=== PATIENT | male | born 1975 | race Caucasian/White ===

== ENCOUNTER 2019-10-08 19:05 | Emergency (ER) | payer MEDICARE, MEDICAID, SELFPAY ==
[2019-10-08 20:00] VITALS: BP 110/73; PULSE 76; RESP 16; TEMP 36.7; O2SAT 97; BMI 26.5
== END 2019-10-09 00:51 | disposition left against medical advice (07) ==
PROVIDERS: Emergency Provider Emergency Medicine
DX: Z53.21 Procedure and treatment not carried out due to patient leaving prior to being seen by health care provider (principal)
CPT/HCPCS: 99281

== ENCOUNTER 2019-10-09 12:59 | Emergency (ER) | payer MEDICARE, MEDICAID, SELFPAY ==
[2019-10-09 13:06] VITALS: BP 149/83; PULSE 93; RESP 17; TEMP 36.9; O2SAT 96; BMI 26.5
--- NOTE | 2019-10-09 13:23 | PC.NURSE ---
Patient states that he has blood in urine and in semen, patient states that he has had multiple sexual partners.
--- NOTE | 2019-10-09 13:24 | ED_ITS ---
Entered by Diana Petit, acting as scribe for Jaspreet Perez DO HPI - Male Genitourinary General: Chief complaint: Urogenital-Male Stated complaint: bloody urine PFSH ED PFSH: Statuses (acute, chronic, etc) shown below reflect problem list status as previously entered and may not be historically accurate Social History Smoking and tobacco status: former smoker Course Vital Signs: Vital signs: Vital Signs Temperature 98.5 F 10/09/19 13:06 Pulse Rate 93 10/09/19 13:06 Respiratory Rate 17 10/09/19 13:06 Blood Pressure 149/83 10/09/19 13:06 Pulse Oximetry 96 10/09/19 13:06 Discharge Plan Discharge Prescriptions: No Action Klonopin PO RF: 0 Lexapro PO RF: 0 Singulair PO RF: 0 Wellbutrin SR PO RF: 0 gabapentin PO RF: 0 meloxicam PO RF: 0 Coding Level of Care Code ED P D 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
--- NOTE | 2019-10-09 13:48 | W.ED.MALEGU ---
HPI - Male Genitourinary General: Chief complaint: Urogenital-Male Stated complaint: bloody urine Time Seen by Provider: 10/09/19 13:48 Source: patient and other (Significant other) Mode of arrival: ambulatory Limitations: no limitations History of Present Illness: HPI Narrative: Patient is a 43-year-old male who presents to ED today with a complaint of blood in his ejaculate that he noticed 2 days ago; also stated this morning when he urinated he noticed a little bit of blood in his urine; significant other in the room states that they both each have one other sexual partner whom they are active with; patient denies penile discharge, dysuria, rashes/lesions, or concern for STDs; he denies testicular pain/warmth/swelling; denies injury or trauma MD Complaint: other (Blood in ejaculate) Onset (ago): day(s) Duration: improved Exacerbating factors: none Associated symptoms: Reports no associated symptoms and hematuria; Deny dysuria, nausea, urinary incontinence or vomiting Related Data: Sexually active: Yes Review of Systems GI: Denies: abdominal pain, nausea or vomiting : Reports: blood in urine and blood in semen; Denies: flank pain, difficulty urinating, painful urination, urinary frequency, urinary urgency, urinary hesitancy, urinary dribbling, difficulty starting urination, change in urine stream, urinary incontinence, genital pain, genital lesion, penile discharge, testicular pain, testicular mass, scrotal swelling, difficulty with ejactulations, painful ejaculations or erectile dysfunction PFSH ED PFSH: Statuses (acute, chronic, etc) shown below reflect problem list status as previously entered and may not be historically accurate Social History Smoking and tobacco status: former smoker Physical Exam Const: COMMON NORMALS: no apparent distress, average body habitus, oriented x3, alert and well nourished GI: COMMON NORMALS: normal to inspection, nondistended, normoactive bowel sounds, soft to palpation and non-tender PALPATION: Yes soft : COMMON NORMALS: Yes external exam normal PENIS: normal penis MEATUS: meatus normal SCROTUM: Yes testes descended bilaterally TESTES: Yes testicular lie normal Neuro: COMMON NORMALS: oriented x3 SENSORIUM/ORIENTATION: Yes alert Skin: COMMON NORMALS: no rashes or lesions noted GENERAL SKIN EXAM: no rashes or lesions noted Course Vital Signs: Vital signs: Vital Signs Temperature 98.5 F 10/09/19 13:06 Pulse Rate 93 10/09/19 13:06 Respiratory Rate 17 10/09/19 13:06 Blood Pressure 149/83 10/09/19 13:06 Pulse Oximetry 96 10/09/19 13:06 MDM - Male Lab Data: Labs: Lab Results 10/09/19 Range/Units 13:36 Urine Color Straw (Yellow) Urine Appearance Clear (CLEAR) Urine pH 6.0 (5-7) Ur Specific Gravit y 1.005 (1.005-1.030) Urine Protein Neg (Negative) Urine Glucose (UA) Norm (Normal) Urine Ketones Negative (Negative) Urine Occult Blood Neg (Negative) Urine Nitrate Negative (Negative) Urine Bilirubin Neg (NEGATIVE) Urine Urobilinogen Norm (Negative) mg/dL Ur Leukocyte Elise ase Negative (Negative) Discharge Plan Discharge Patient Disposition: Home, Self-Care Clinical Impression: Hematospermia Condition: Stable Prescriptions: No Action gabapentin 600 mg Tablet 600 mg PO BID RF: 0 clonazepam 1 mg Tablet 1 mg PO DAILY RF: 0 meloxicam 7.5 mg Tablet 7.5 mg PO BID RF: 0 montelukast 10 mg Tablet 10 mg PO DAILY RF: 0 escitalopram oxalate [Lexapro] 20 mg Tablet 20 mg PO DAILY RF: 0 bupropion HCl [Wellbutrin XL] 300 mg Tablet Extended Release 24 Hr 300 mg PO QAM RF: 0 Discharge Orders: Discharge Order (Routine); Ordered 10/09/19 Ordered By: Danielle Ponce Referrals: [facility] [Other] Discharge Diet: Usual diet Discharge Activity: Resume usual activity Activity Restrictions/Additional Instructions: Follow up with primary care for continued episodes of blood in your ejaculate. If you develop STD symptoms (i.e penile discharge, rash/lesions, burning/painful urination) you need to go to [facility] for [facility]D testing. 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
[2019-10-09 13:52] LABS: Add Urine Microscopic? NO
[2019-10-09 14:17] LABS: Bilirubin Urine Neg (NEGATIVE); Blood Urine Neg (Negative); Glucose Urine UA Norm (Normal); Ketones Urine Negative (Negative); Leukocyte Esterase Urine Negative (Negative); Nitrate Urine Negative (Negative); Protein Urine Neg (Negative); Specific Gravity, Urine 1.005 (1.005-1.030); Urine Appearance Clear (CLEAR); Urine Color Straw (Yellow); Urobilinogen Urine Norm (Negative)
[2019-10-09 14:47] VITALS: BP 119/71; PULSE 91; RESP 18; O2SAT 95
== END 2019-10-09 14:49 | disposition home or self-care (01) ==
PROVIDERS: Family Medicine; Emergency Provider Physician Assistant
DX: R36.1 Hematospermia (principal); Z87.891 Personal history of nicotine dependence
CPT/HCPCS: 81003; 99282; A9270

== ENCOUNTER → 2019-10-20 14:55 | Outpatient (BNVA) | payer MEDICARE, MEDICAID, SELFPAY | PROVIDERS: Visit Provider Nurse Practitioner | DX: F33.2 Major depressive disorder, recurrent severe without psychotic features (principal); F41.1 Generalized anxiety disorder; R41.83 Borderline intellectual functioning | CPT/HCPCS: 99213 ==

== ENCOUNTER 2019-12-26 20:35 | Emergency (ER) | payer MEDICARE, MEDICAID, SELFPAY ==
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
[2019-12-26 20:42] VITALS: BP 148/96; PULSE 108; RESP 20; TEMP 36.3; O2SAT 96; BMI 25.1
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
[2019-12-26 22:07] VITALS: BP 137/92; PULSE 100; RESP 16; O2SAT 96
== END 2019-12-26 22:08 | disposition home or self-care (01) ==
LOC: ER 21:38
PROVIDERS: Emergency Provider Emergency Medicine
DX: S01.511A Laceration without foreign body of lip, initial encounter (principal); Y04.8XXA Assault by other bodily force, initial encounter; R41.83 Borderline intellectual functioning; F41.1 Generalized anxiety disorder; F33.2 Major depressive disorder, recurrent severe without psychotic features
CPT/HCPCS: 12011; 12345; 70450; 70486; 99281; 99283; J2001

== ENCOUNTER → 2020-02-10 08:14 | Outpatient (BNVA) | payer MEDICARE, MEDICAID, SELFPAY | PROVIDERS: Visit Provider Nurse Practitioner | DX: F41.1 Generalized anxiety disorder (principal); F33.2 Major depressive disorder, recurrent severe without psychotic features; R41.83 Borderline intellectual functioning | CPT/HCPCS: 99213 ==

== ENCOUNTER 2020-06-29 10:42 | Emergency (ER) | payer MEDICARE, MEDICAID, SELFPAY ==
[2020-06-29 11:27] VITALS: BP 130/74; PULSE 117; RESP 16; TEMP 36.9; O2SAT 95; BMI 22.9
--- NOTE | 2020-06-29 12:43 | W.ED.FEVER ---
HPI - Fever General: Chief Complaint: Fever Stated Complaint: COVID SYMPTOMS Time Seen by Provider: 06/29/20 12:27 History of Present Illness: HPI Narrative: 44-year-old male presents to the emergency room with a complaint of low-grade fever cough sinus congestion ear pain. He was seen yesterday by his primary care doctor, he presumed he had an ear infection but there was no antibiotics called and he is concerned that his ears are bothering him more and his symptoms are advancing. He has had a little bit of loose stools but no patric diarrhea is not been exposed to anyone that he knows of that has COVID. MD elicited complaint: fever Onset (ago): day(s) Exacerbating factors: nothing Relieving factors: nothing Associated symptoms: Reports chills, cough, diarrhea, nasal congestion and nausea; Deny abdominal pain, flank pain, chest pain, confusion, dysuria, extremity pain, headache(s), myalgias, night sweats, rash, rhinorrhea, short of breath, sinus pain, stiffness, sore throat, vaginal discharge, vomiting, weight loss or other Treatments prior to arrival fever: none Review of Systems Const: Reports: chills; Denies: night sweats ENMT: Reports: nasal congestion; Denies: sinus pain Card: Denies: chest pain Resp: Denies: dyspnea, productive cough or non-productive cough GI: Reports: nausea and diarrhea; Denies: abdominal pain or vomiting : Denies: flank pain or dysuria Musc: Denies: extremity pain Skin/Breast: Denies: rash or pruritus Neuro: Denies: headache(s) or confusion PFS ED PFSH: Medical History Borderline intellectual functioning Generalized anxiety disorder Major depressive disorder, recurrent severe without psychotic features Social History Smoking and tobacco status: never smoked Physical Exam Const: COMMON NORMALS: no acute distress GENERAL APPEARANCE: cooperative and comfortable ORIENTATION/CONSCIOUSNESS: Yes awake, Yes oriented to person, Yes oriented to place and Yes oriented to time HENMT: COMMON NORMALS: normocephalic, atraumatic, hearing grossly normal bilaterally, external ears normal, EAC's normal, TM's normal bilaterally, Normal nasal mucous membranes and turbinates present, moist oral mucous membranes and oropharynx normal HEAD & SCALP: normocephalic and atraumatic NOSE: Normal nasal mucous membranes and turbinates present EXTERNAL EAR: Yes external ears normal EXTERNAL AUDITORY CANAL: EAC's normal TYMPANIC MEMBRANE: TM's normal bilaterally Eye: COMMON NORMALS: Equal, round and reactive pupils present, EOMs intact bilaterally, conjunctivae normal and no scleral icterus CONJUNCTIVA: Yes conjunctivae normal PUPIL: Yes Equal, round and reactive pupils present Neck/C-Spine: COMMON NORMALS: full ROM, no lymphadenopathy, supple and no JVD Lymph: LYMPHATIC: no lymphadenopathy noted and no lymphedema noted Resp: COMMON NORMALS: normal respiratory effort, No retractions, No use of accessory muscles and clear to auscultation bilaterally AUSCULTATION: clear to auscultation bilaterally Cardio: COMMON NORMALS: no JVD, regular rate, regular rhythm and No murmurs present (Cardio) RATE: regular rate RHYTHM: regular rhythm GI: COMMON NORMALS: Soft to palpation and No hepatosplenomegaly present AUSCULTATION: Yes normoactive bowel sounds PALPATION: Yes Soft to palpation, No Tenderness to palpation present (GI), No Guarding due to palpation present (GI) and Yes No hepatosplenomegaly present Extremity: COMMON NORMALS: normal to inspection, capillary refill normal, no clubbing, cyanosis or edema, no calf tenderness and no pedal edema Neuro: SENSORIUM/ORIENTATION: Yes oriented to person, Yes oriented to place and Yes oriented to time Skin: COMMON NORMALS: no rashes or lesions noted GENERAL SKIN EXAM: no rashes or lesions noted Course Vital Signs: Vital signs: Vital Signs Temperature 98.5 F 06/29/20 11:27 Pulse Rate 102 H 06/29/20 12:50 Respiratory Rate 14 06/29/20 12:50 Blood Pressure 115/81 06/29/20 12:50 Pulse Oximetry 95 06/29/20 12:50 MDM - Fever MDM Narrative: Medical decision making narrative: TMs bilaterally are clear with no sign of infection or inflammation. We will go ahead and discharge home suspect he also has a COVID-19 infection was swabbed advised to remain in quarantine until results are available. Lab Data: Labs: Lab Results 06/29/20 Range/Units 12:55 SARS-CoV-2 RNA (RT -PCR) Detected A (NOT DETECTED) Discharge Plan Discharge Patient Disposition: Home Clinical Impression: Otalgia, Suspected COVID-19 virus infection Condition: Stable Prescriptions: No Action escitalopram oxalate [Lexapro] 20 mg tablet 20 mg PO DAILY Qty: 30 RF: 2 bupropion HCl [Wellbutrin XL] 300 mg tablet extended release 24 hr 300 mg PO QAM Qty: 30 RF: 2 clonazepam 1 mg tablet 1 mg PO DAILY PRN (Reason: anxiety) Qty: 30 RF: 2 Tylenol Extra Strength 500 mg Tablet 1,000 mg PO PRN RF: 0 Flonase Allergy Relief 50 mcg/actuation [place],Suspension 1 spray INTRANASAL DAILY RF: 0 Claritin 10 mg Tablet 10 mg PO BID RF: 0 gabapentin 600 mg Tablet 600 mg PO BID RF: 0 meloxicam 7.5 mg Tablet 7.5 mg PO DAILY RF: 0 Discharge Orders: Discharge Order (Routine); Ordered 06/29/20 Ordered By: Jaspreet Perez Discharge Diet: Usual diet Discharge Activity: Increase activity as tolerated Activity Restrictions/Additional Instructions: Use medication as prescribed by the your doctor yesterday. Recommend that you maintain self quarantine until the COVID-19 swab results are back. If you have worsening symptoms you can return to the emergency room particularly be wary of increasing shortness of breath. Discharge Date/Time: 06/29/20 12:55 Coding Level of Care Code ED [employer] for 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 Exam Comprehensive
[2020-06-29 12:44] VITALS: BP 115/81; PULSE 103; RESP 15; O2SAT 97
[2020-06-29 12:50] VITALS: BP 115/81; PULSE 102; RESP 14; O2SAT 95
[2020-07-01 20:17] LABS: Quest SARS-CoV-2 RNA DETECTED (NOT DETECTED)
--- NOTE | 2020-07-02 11:06 | PC.NURSE ---
Pt called and notified of positive COVID result.
== END 2020-06-29 12:55 | disposition home or self-care (01) ==
PROVIDERS: Emergency Provider Family Medicine
DX: U07.1 COVID-19 (principal); H92.09 Otalgia, unspecified ear
CPT/HCPCS: 12345; 87635; 99282

== ENCOUNTER → 2020-07-22 08:05 | Outpatient (BNVA) | payer MEDICARE, MEDICAID, SELFPAY | PROVIDERS: Visit Provider Nurse Practitioner | DX: F33.2 Major depressive disorder, recurrent severe without psychotic features (principal); F41.1 Generalized anxiety disorder; R41.83 Borderline intellectual functioning | CPT/HCPCS: 99213 ==

== ENCOUNTER → 2022-05-04 10:27 | Outpatient (BNVA) | payer MEDICARE, MEDICAID, SELFPAY | PROVIDERS: PCP Family Medicine; Visit Provider Surgery | DX: Z12.11 Encounter for screening for malignant neoplasm of colon (principal) | CPT/HCPCS: 99024 ==

== ENCOUNTER 2022-08-03 07:20 | Day surgery (SDC) | payer MEDICARE, MEDICAID, SELFPAY ==
[2022-08-02 09:40] VITALS: BMI 26.5
[2022-08-03 07:52] VITALS: BP 122/85; PULSE 86; RESP 18; TEMP 36.1; O2SAT 96
[2022-08-03] MEDS: sodium chloride 0.9% 1,000 ML 30 ML IV (08:05)
--- NOTE | 2022-08-03 08:06 | P.HP_ITS ---
Same Day Surgery H&P Indication for Procedure/HPI DATE OF PROCEDURE: August 03, 2022 CHIEF COMPLAINT/INDICATIONFOR SURGICAL PROCEDURE: Screening colonoscopy PREOP DIAGNOSIS: Screening colonoscopy PLANNED PROCEDURE: Operation Date: 08/03/22 09:00 Proposed Procedures p Colonoscopy 93756,Z12.11(Not Applicable) - Marcos Kelly MD This is a pleasant 46 years old gentleman referred to my practice for screening colonoscopy. Patient reports that he had blood in stool on a testing card. Per his description. Denies history of colon cancer or obvious bleeding per rectum. Never had a colonoscopy before. ROS All systems have been reviewed negative except as for the above or per problem list. Medications/Allergies* Home Medications Medication Instructions Recorded Confirmed Type acetaminophen 500 mg tablet 1,000 mg PO PRN PRN Pain 06/29/20 08/02/22 History (Tylenol Extra Strength) fluticasone propionate 50 1 spray intranasal DAILY PRN 06/29/20 08/02/22 History mcg/actuation nasal allergies spray,suspension (Flonase Allergy Relief) diphenhydramine HCl 25 mg capsule 25 mg PO TID PRN Allergic Symptoms 08/03/22 08/03/22 History (Benadryl) Allergies/Adverse Reactions Allergy/AdvReac Type Severity Reaction Status Date / Time aspirin Allergy Unknown Verified 08/03/22 08:07 Current Medications: Generic Name Dose Route Start Last Admin Trade Name Freq PRN Reason Stop Dose Admin Sodium Chloride 1,000 mls @ 30 mls/hr 08/03/22 08:00 08/03/22 08:05 Sodium Chloride 0.9% IV 08/04/22 07:59 30 mls/hr .Q24H LEONID Administration Pertinent History/Comorbid Conditions* Medical History (Updated 07/07/20 @ 00:01 by ) Borderline intellectual functioning Generalized anxiety disorder Major depressive disorder, recurrent severe without psychotic features Social History Smoking and tobacco status: never smoked Pertinent Exam Findings alert, oriented x 3, clear to auscultation bilaterally, regular rate & rhythm and procedure specific exam findings (Abdominal exam nontender nondistended soft) Recommendations Surgery/Procedure today (Colonoscopy with possible biopsy) Other Plans: Plan of care; After thorough history and physical examination and reviewing the chart, plan to perform screening colonoscopy. I discussed with the patient in details the risks,benefits,alternatives and indications.The risk of aspiration, bleeding, soft tissue injury, perforation of the colon ,missed lesions and other potential concomitant complications were explained to the patient in details,also the potential need for Laproscoy/Laparotomy to repair any related complications including but not limited to colectomy and or Closotomy.The patient understood this well and did agree to proceed. Rationale was carefully and clearly discussed with the patient.Appropriate informed consent have been reviewed and signed All questions have been answered and all concerns have been addressed to patient's satisfaction. Verbal and written Instructions were given to the patient for colonoscopy prep Coding Level of Care Code Acute Application Support Intern for 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
--- NOTE | 2022-08-03 08:21 | ANES.PREANE2 ---
Pre-Anesthetic Assessment Height/Weight: Height 1.78 m Weight 83.915 kg Temp Pulse Resp BP Pulse Ox O2 Del Method 97.0 F L 86 18 122/85 96 08/03/22 07:52 08/03/22 07:52 08/03/22 07:52 08/03/22 07:52 08/03/22 07:52 08/03/22 07:52 Preop Diagnosis: Screening colonoscopy Operation Date: 08/03/22 09:00 Proposed Procedures p Colonoscopy 79159,Z12.11(Not Applicable) - Marcos Kelly MD Familial anesthetic complications: None Was Beta Guillermo taken within 24 hours: N/A Was Clonidine taken within 24 hours: N/A Last intake: Intake Last Liquid Date 08/02/22 Last Liquid Time 22:00 Last Solid Date 08/01/22 Last Solid Time 17:00 Social No alcohol and No tobacco Exam alert, oriented x 3, clear to auscultation bilaterally and regular rate & rhythm Airway Submandibular: within normal limits Cervical ROM: within normal limits Mallampati: Class III Dentition: chipped History/ROS No significant history except as noted and No significant complaints Pulmonary None reported CV/HEM Hypertension None reported Hepatic None reported GI Gastroesophageal Reflux Disease (None this AM) Metabolic None reported Musc/skel Lower Back Pain and Osteoarthritis/DJD Neuropsych Anxiety and Depression Anesthetic Plan ASA status: 2 Anesthesia: Anesthesia Evaluation, General and MAC Risk of > 500 ml blood loss (7ml/kg in children): No Medications/Allergies Home Medications Medication Instructions Recorded Confirmed Last Taken Type acetaminophen 500 mg tablet 1,000 mg PO PRN PRN Pain 06/29/20 08/03/22 06/28/20 History (Tylenol Extra Strength) fluticasone propionate 50 1 spray intranasal DAILY PRN 06/29/20 08/03/22 Unknown History mcg/actuation nasal allergies spray,suspension (Flonase Allergy Relief) diphenhydramine HCl 25 mg capsule 25 mg PO TID PRN Allergic Symptoms 08/03/22 08/03/22 07/31/22 History (Benadryl) Allergies Allergy/AdvReac Type Severity Reaction Status Date / Time aspirin Allergy Unknown Verified 08/03/22 08:07 Current Medications Generic Name Dose Route Start Last Admin Trade Name Freq PRN Reason Stop Dose Admin Sodium Chloride 1,000 mls @ 30 mls/hr 08/03/22 08:00 08/03/22 08:05 Sodium Chloride 0.9% IV 08/04/22 07:59 30 mls/hr .Q24H LEONID Administration PFSH Anesthesia Medical History (Updated 07/07/20 @ 00:01 by ) Borderline intellectual functioning Generalized anxiety disorder Major depressive disorder, recurrent severe without psychotic features Social History Smoking and tobacco status: never smoked Data Anesthesia Cardiac Studies: No Data to Display
[2022-08-03 09:32] VITALS: BP 108/74; PULSE 87; RESP 20; TEMP 36.4; O2SAT 96
[2022-08-03 09:40] VITALS: BP 103/73; PULSE 77; RESP 18; O2SAT 97
--- NOTE | 2022-08-03 15:20 | ANE.PACU2 ---
Inpatient post-anesthesia follow up: Airway intact: Yes Vital signs: Temperature 97.6 F Pulse Rate 77 Respiratory Rate 18 Blood Pressure 103/73 Pulse Oximetry 97 Oxygen Delivery Me thod Room Air Oxygen Flow Rate 4 Fraction of Inspir ed Oxygen Hydration adequate: Yes Nausea and vomiting: No Pain level: 1 Mental status: Baseline
== END 2022-08-03 10:04 | disposition home or self-care (01) ==
PROVIDERS: PCP Family Medicine; Visit Provider Surgery
PROC: 0DJD8ZZ Inspection of Lower Intestinal Tract, Via Natural or Artificial Opening Endoscopic (ICD-10-PCS; CPT 45378; principal; 2022-08-03 09:00)
DX: Z12.11 Encounter for screening for malignant neoplasm of colon (principal); I10 Essential (primary) hypertension; K21.9 Gastro-esophageal reflux disease without esophagitis; F41.9 Anxiety disorder, unspecified; F32.A Depression, unspecified
CPT/HCPCS: 45378; G0121; J2704; J7030

== ENCOUNTER 2023-10-13 16:13 | Emergency (ER) | payer MEDICARE, MEDICAID, SELFPAY ==
[2023-10-13 16:21] VITALS: BP 121/80; PULSE 98; RESP 16; TEMP 36.5; O2SAT 96
--- NOTE | 2023-10-13 16:37 | ECG_ITS ---
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 Measurements Intervals [place] Rate: 90 P: 52 MS: 190 QRS: 11 QRSD: 92 T: 40 QT: 343 QTc: 421 Interpretive Statements SINUS RHYTHM INTERPRETATION BASED ON A DEFAULT AGE OF 40 YEARS Compared to ECG 09/02/2018 12:01:34 No significant changes Electronically Signed On 10-14-2023 8:30:01 [employer] by Deniz Tavares M.D. [id number] f
--- NOTE | 2023-10-13 16:42 | XRR_ITS ---
PROCEDURE INFORMATION: Exam: XR Chest Exam date and time: 10/13/2023 5:21 PM Age: 47 years old Clinical indication: Cough and dyspnea; Additional info: Dyspnea/cough TECHNIQUE: Imaging protocol: Radiologic exam of the chest. Views: 1 view. COMPARISON: CR XR chest 1V [id number] 09/02/2018 11:50 AM FINDINGS: Lungs: Unremarkable. No consolidation. Pleural spaces: Unremarkable. No pleural effusion. No pneumothorax. Heart/Mediastinum: Unremarkable. No cardiomegaly. Bones/joints: Unremarkable. XR/XR chest 1V portable [id number] IMPRESSION: No acute findings.
--- NOTE | 2023-10-13 16:47 | ED_ITS ---
Documented by User: Jaspreet Perez DO 10/14/23 07:39 HPI - Nausea/Vomiting/Diarrhea 2 General: Chief complaint: Nausea/Vomiting/Diarrhea Stated complaint: Chest pains/ weakness/ nauseous Time Seen by Provider: 10/13/23 16:41 Source: patient Mode of arrival: ambulatory History of Present Illness: 47-year-old male presents emergency room with complaints of epigastric and chest discomfort that began about 2 hours prior to arrival. He was working on repairing a deer stand he had a cramping pain in his stomach extended into his chest lasted for a few seconds and then resolved he has not had any recurrence. No radiation of pain no shortness of breath associated with it he did get nauseated transiently but that resolved as well. He has not had any previous episodes like this or recurrence since this initially happened. He has no known history of coronary artery disease no history of chronic respiratory disease.. MD elicited complaint: nausea, vomiting and other (Chest pain) Associated nausea: Yes Associated symtoms: Reports chest pain and nausea; Denies dysuria Review of Systems 2 Const: Denies: fever(s) or chills Card: Reports: chest pain Resp: Denies: dyspnea GI: Reports: abdominal pain, nausea and vomiting : Denies: dysuria, urinary frequency or urinary urgency Musc: Denies: neck pain or back pain Skin/Breast: Denies: rash PFSH ED 2 PFSH: Medical History (Updated 10/13/23 @ 18:24 by Sergio Villalba MD) Borderline intellectual functioning Generalized anxiety disorder Major depressive disorder, recurrent severe without psychotic features Social History Smoking and tobacco/nicotine status: never used tobacco/nicotine Physical Exam 2 Const: COMMON NORMALS: no acute distress GENERAL APPEARANCE: cooperative and comfortable ORIENTATION/CONSCIOUSNESS: Yes awake, Yes oriented to person, Yes oriented to place and Yes oriented to time HENMT: COMMON NORMALS: normocephalic, atraumatic and hearing grossly normal bilaterally HEAD & SCALP: normocephalic and atraumatic Resp: COMMON NORMALS: normal respiratory effort, No retractions, No use of accessory muscles and clear to auscultation bilaterally AUSCULTATION: clear to auscultation bilaterally Cardio: COMMON NORMALS: regular rate, regular rhythm and No murmurs present (Cardio) RATE: regular rate RHYTHM: regular rhythm GI: COMMON NORMALS: Soft to palpation and No hepatosplenomegaly present A USCULTATION: Yes normoactive bowel sounds PALPATION: Yes Soft to palpation, No Tenderness to palpation present (GI), No Guarding due to palpation present (GI) and Yes No hepatosplenomegaly present Extremity: COMMON NORMALS: normal to inspection, capillary refill normal, no clubbing, cyanosis or edema, no calf tenderness and no pedal edema Neuro: SENSORIUM/ORIENTATION: Yes oriented to person, Yes oriented to place and Yes oriented to time Skin: COMMON NORMALS: no rashes or lesions noted GENERAL SKIN EXAM: no rashes or lesions noted Course 2 Vital Signs: Vital signs: Vital Signs Temperature 97.7 F 10/13/23 18:57 Pulse Rate 98 10/13/23 18:57 Respiratory Rate 16 10/13/23 18:57 Blood Pressure 121/80 10/13/23 18:57 Pulse Oximetry 96 10/13/23 18:57 Oxygen Delivery Me thod Room Air 10/13/23 16:21 MDM - Nausea/Vomiting/Diarrhea Medical Decision Making Care signed out to Dr. Villalba at change of shift. See final notes for diagnosis and disposition. Patient presents for chest pains atypical in nature likely esophageal spasms patient stable for discharge follow-up PCP return if worsening. Lab Data 10/13/23 17:30 10/13/23 17:30 Radiology Impressions Chest X-Ray 10/13/23 16:42 IMPRESSION: No acute findings. Laboratory Results WBC 8.87 10^3/uL (3.29-11.43) 10/13/23 17:30 RBC 5.12 10^6/uL (3.85-5.65) 10/13/23 17:30 Hgb 14.90 g/dL (11.27-16.99) 10/13/23 17:30 Hct 44.0 % (37-53) 10/13/23 17:30 MCV 85.9 fl (82-101) 10/13/23 17:30 MCH 29.1 pg (27-33) 10/13/23 17:30 MCHC 33.9 g/dL (30-55) 10/13/23 17:30 RDW 12.3 % (12.1-15.1) 10/13/23 17:30 Plt Count 282 10^3/cmm (157-399) 10/13/23 17:30 MPV 9.0 fL (7.4-10.4) 10/13/23 17:30 Neut % (Auto) 72.0 % 10/13/23 17:30 Lymph % (Auto) 17.2 % 10/13/23 17:30 Rice % (Auto) 6.5 % 10/13/23 17:30 Eos % (Auto) 3.7 % 10/13/23 17:30 Baso % (Auto) 0.3 % 10/13/23 17:30 Neut # (Auto) 6.37 10^3/uL (1.8-7.7) 10/13/23 17:30 Lymph # (Auto) 1.5 10^3/uL (0.8-4.8) 10/13/23 17:30 Rice # (Auto) 0.6 10^3/uL (0.2-0.9) 10/13/23 17:30 Eos # (Auto) 0.3 10^3/uL (0.0-0.8) 10/13/23 17:30 Baso # (Auto) 0.0 10^3/uL (0.0-0.1) 10/13/23 17:30 Nucleated RBC % (auto) 0 % 10/13/23 17: Nucleated RBCs # 0.0 /100WBC 10/13/23 17:30 Sodium 134 mmol/L (136-145) L 10/13/23 17:30 Potassium 4.1 mmol/L (3.5-5.1) 10/13/23 17:30 Chloride 98 mmol/L (98-107) 10/13/23 17:30 Carbon Dioxide 25 mmol/L (22-29) 10/13/23 17:30 Anion Gap 15.1 (5-19) 10/13/23 17:30 BUN 16 mg/dL (6-20) 10/13/23 17:30 Creatinine 1.3 mg/dL (0.7-1.2) H 10/13/23 17:30 GFR Calculation 59.2 mL/min (90-130) L 10/13/23 17:30 Glucose 107 mg/dL (65-115) 10/13/23 17:30 POC Glucose 138 mg/dL (70-110) H 10/13/23 17:04 Calculated Osmolality 280 mOsm/kg (285-295) L 10/13/23 17:30 Calcium 8.9 mg/dL (8.5-10.5) 10/13/23 17:30 Total Bilirubin 0.3 mg/dL (0.15-1.2) 10/13/23 17:30 AST 23 U/L (0-40) 10/13/23 17:30 ALT 38 U/L (0-41) 10/13/23 17:30 Alkaline Phosphatase 89 U/L (40-130) 10/13/23 17:30 Troponin T Baseline 7 ng/L (0-15) 10/13/23 17:30 Total Protein 7.4 g/dL (6.6-8.7) 10/13/23 17:30 Albumin 4.3 g/dL (3.5-5.2) 10/13/23 17:30 Globulin 3.1 g/dL (1.3-4.6) 10/13/23 17:30 Lipase 25 U/L (13-60) 10/13/23 17:30 Discharge Plan Discharge Patient Disposition: Home Clinical Impression: Chest pain Condition: Stable Prescriptions: No Action acetaminophen [Tylenol Extra Strength] 500 mg Tablet 1,000 mg PO PRN PRN (Reason: Pain) fluticasone propionate [Flonase Allergy Relief] 50 mcg/actuation [place],Suspension 1 spray INTRANASAL DAILY PRN (Reason: allergies) Rx Instructions: pt states he hasnt started using this medication yet Benadryl 25 mg Capsule 25 mg PO TID PRN (Reason: Allergic Symptoms) Discharge Orders: Discharge ED (Routine); Ordered 10/13/23 Ordered By: Sergio Villalba Referrals: Aldo Rodríguez MD [Primary Care Provider] - 1-3 days Discharge Diet: Advance as tolerated Discharge Activity: Resume usual activity Patient Instructions: Chest Pain (ED) Coding Level of Care Code ED Director Of Direct Marketing for Chg Fwd Documented by User: Sergio Villalba MD 10/13/23 18:29 HPI - Nausea/Vomiting/Diarrhea 2 General: Chief complaint: Nausea/Vomiting/Diarrhea Stated complaint: Chest pains/ weakness/ nauseous Time Seen by Provider: 10/13/23 16:41 History of Present Illness: 47-year-old male states that he had had a sharp epigastric and chest pain roughly 2 hours ago. He states that it lasted seconds and had some nausea with it and then its since resolved he had no pain since then denies any history of heart disease does have history of reflux denies any shortness of breath or fevers. PFSH ED 2 PFSH: Medical History (Updated 10/13/23 @ 18:24 by Sergio Villalba MD) Borderline intellectual functioning Generalized anxiety disorder Major depressive disorder, recurrent severe without psychotic features Social History Smoking and tobacco/nicotine status: never used tobacco/nicotine Course 2 Vital Signs: Vital signs: Vital Signs Temperature 97.7 F 10/13/23 18:57 Pulse Rate 98 10/13/23 18:57 Respiratory Rate 16 10/13/23 18:57 Blood Pressure 121/80 10/13/23 18:57 Pulse Oximetry 96 10/13/23 18:57 Oxygen Delivery Me thod Room Air 10/13/23 16:21 MDM - Nausea/Vomiting/Diarrhea Medical Decision Making Patient presents for chest pains atypical in nature likely esophageal spasms patient stable for discharge follow-up PCP return if worsening. Medical Records I reviewed the patient's medical records. Lab Data I reviewed the patient's lab results. 10/13/23 17:30 10/13/23 17:30 Radiology Impressions Chest X-Ray 10/13/23 16:42 IMPRESSION: No acute findings. Laboratory Results WBC 8.87 10^3/uL (3.29-11.43) 10/13/23 17:30 RBC 5.12 10^6/uL (3.85-5.65) 10/13/23 17:30 Hgb 14.90 g/dL (11.27-16.99) 10/13/23 17:30 Hct 44.0 % (37-53) 10/13/23 17:30 MCV 85.9 fl (82-101) 10/13/23 17:30 MCH 29.1 pg (27-33) 10/13/23 17: MCHC 33.9 g/dL (30-55) 10/13/23 17:30 RDW 12.3 % (12.1-15.1) 10/13/23 17:30 Plt Count 282 10^3/cmm (157-399) 10/13/23 17:30 MPV 9.0 fL (7.4-10.4) 10/13/23 17:30 Neut % (Auto) 72.0 % 10/13/23 17:30 Lymph % (Auto) 17.2 % 10/13/23 17:30 Rice % (Auto) 6.5 % 10/13/23 17:30 Eos % (Auto) 3.7 % 10/13/23 17:30 Baso % (Auto) 0.3 % 10/13/23 17: Neut # (Auto) 6.37 10^3/uL (1.8-7.7) 10/13/23 17:30 Lymph # (Auto) 1.5 10^3/uL (0.8-4.8) 10/13/23 17:30 Rice # (Auto) 0.6 10^3/uL (0.2-0.9) 10/13/23 17:30 Eos # (Auto) 0.3 10^3/uL (0.0-0.8) 10/13/23 17: Baso # (Auto) 0.0 10^3/uL (0.0-0.1) 10/13/23 17:30 Nucleated RBC % (auto) 0 % 10/13/23 17: Nucleated RBCs # 0.0 /100WBC 10/13/23 17:30 Sodium 134 mmol/L (136-145) L 10/13/23 17:30 Potassium 4.1 mmol/L (3.5-5.1) 10/13/23 17:30 Chloride 98 mmol/L (98-107) 10/13/23 17:30 Carbon Dioxide 25 mmol/L (22-29) 10/13/23 17:30 Anion Gap 15.1 (5-19) 10/13/23 17:30 BUN 16 mg/dL (6-20) 10/13/23 17:30 Creatinine 1.3 mg/dL (0.7-1.2) H 10/13/23 17:30 GFR Calculation 59.2 mL/min (90-130) L 10/13/23 17:30 Glucose 107 mg/dL (65-115) 10/13/23 17:30 POC Glucose 138 mg/dL (70-110) H 10/13/23 17:04 Calculated Osmolality 280 mOsm/kg (285-295) L 10/13/23 17:30 Calcium 8.9 mg/dL (8.5-10.5) 10/13/23 17:30 Total Bilirubin 0.3 mg/dL (0.15-1.2) 10/13/23 17:30 AST 23 U/L (0-40) 10/13/23 17:30 ALT 38 U/L (0-41) 10/13/23 17:30 Alkaline Phosphatase 89 U/L (40-130) 10/13/23 17:30 Troponin T Baseline 7 ng/L (0-15) 10/13/23 17:30 Total Protein 7.4 g/dL (6.6-8.7) 10/13/23 17:30 Albumin 4.3 g/dL (3.5-5.2) 10/13/23 17:30 Globulin 3.1 g/dL (1.3-4.6) 10/13/23 17:30 Lipase 25 U/L (13-60) 10/13/23 17:30 All radiology interpretation(s) finalized by discharge Discharge Plan Discharge Patient Disposition: Home Clinical Impression: Chest pain Condition: Stable Prescriptions: No Action acetaminophen [Tylenol Extra Strength] 500 mg Tablet 1,000 mg PO PRN PRN (Reason: Pain) fluticasone propionate [Flonase Allergy Relief] 50 mcg/actuation [place],Suspension 1 spray INTRANASAL DAILY PRN (Reason: allergies) Rx Instructions: pt states he hasnt started using this medication yet Benadryl 25 mg Capsule 25 mg PO TID PRN (Reason: Allergic Symptoms) Discharge Orders: Discharge ED (Routine); Ordered 10/13/23 Ordered By: Sergio Villalba Referrals: Aldo Rodríguez MD [Primary Care Provider] - 1-3 days Discharge Diet: Advance as tolerated Discharge Activity: Resume usual activity Patient Instructions: Chest Pain (ED) Coding Level of Care Code ED Director Of Direct Marketing for 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
[2023-10-13 17:07] LABS: Glucose Point of Care 138 mg/dL (70-110)
[2023-10-13 17:48] LABS: Basophils % 0.3 %; Eosinophils # 0.3 10^3/uL (0.0-0.8); Eosinophils % 3.7 %; Lymphocytes # 1.5 10^3/uL (0.8-4.8); Lymphocytes % 17.2 %; Mean Corpuscular HGB Conc 33.9 g/dL (30-55); Mean Corpuscular Hemoglobin 29.1 pg (27-33); Mean Corpuscular Volume 85.9 fl (82-101); Monocytes # 0.6 10^3/uL (0.2-0.9); Monocytes % 6.5 %; Neutrophils # 6.37 10^3/uL (1.8-7.7); Nucleated Red Blood Cells % 0 %; Platelet Count 282 10^3/cmm (157-399); Red Blood Count 5.12 10^6/uL (3.85-5.65); Red Cell Distribution Width 12.3 % (12.1-15.1); White Blood Count 8.87 10^3/uL (3.29-11.43)
[2023-10-13 18:08] LABS: Alanine Aminotransferase 38 U/L (0-41); Albumin Level 4.3 g/dL (3.5-5.2); Alkaline Phosphatase 89 U/L (40-130); Anion Gap 15.1 (5-19); Aspartate Amino Transferase 23 U/L (0-40); Blood Urea Nitrogen 16 mg/dL (6-20); Calcium 8.9 mg/dL (8.5-10.5); Carbon Dioxide 25 mmol/L (22-29); Chloride 98 mmol/L (98-107); Globulin 3.1 g/dL (1.3-4.6); Glomerular Filtration Rate 59.2 mL/min (90-130); Glucose 107 mg/dL (65-115); Lipase 25 U/L (13-60); Osmolality Calculated 280 mOsm/kg (285-295); Potassium 4.1 mmol/L (3.5-5.1); Sodium 134 mmol/L (136-145); Total Bilirubin 0.3 mg/dL (0.15-1.2); Total Protein 7.4 g/dL (6.6-8.7)
[2023-10-13 18:13] LABS: Troponin(5th) Baseline 7 ng/L (0-15)
[2023-10-13 18:57] VITALS: BP 121/80; PULSE 98; RESP 16; TEMP 36.5; O2SAT 96
== END 2023-10-13 18:57 | disposition home or self-care (01) ==
PROVIDERS: Family Medicine; Emergency Provider Emergency Medicine; PCP Family Medicine
DX: R07.9 Chest pain, unspecified (principal)
CPT/HCPCS: 36415; 36416; 71045; 80053; 82962; 83690; 84484; 85025; 93005; 99285

== ENCOUNTER 2024-02-06 14:29 | Outpatient (CLI) | payer MEDICARE, MEDICAID, SELFPAY ==
--- NOTE | 2024-02-06 14:36 | XRR_ITS ---
PROCEDURE INFORMATION: Exam: XR Chest Exam date and time: 02/06/2024 2:40 PM Age: 48 years old Clinical indication: Shortness of breath; Additional info: Dyspnea on exertion TECHNIQUE: Imaging protocol: Radiologic exam of the chest. Views: 2 views. COMPARISON: CR XR chest 1V portable [id number] 10/13/2023 5:21 PM FINDINGS: Lungs: Small nodular density at the right lung base is presumably a nipple shadow as it was not present on 10/13/2023. Pleural spaces: Unremarkable. No pleural effusion. No pneumothorax. Heart/Mediastinum: Unremarkable. No cardiomegaly. Bones/joints: Unremarkable. XR/XR chest 2V* [id number] IMPRESSION: No acute cardiopulmonary disease.
== END 2024-02-06 14:30 | disposition home or self-care (01) ==
PROVIDERS: Visit Provider Family Medicine
DX: R06.9 Unspecified abnormalities of breathing (principal)
CPT/HCPCS: 71046

== ENCOUNTER 2024-02-14 11:07 | Outpatient (CLI) | payer MEDICARE, MEDICAID, SELFPAY | END 2024-02-14 11:08 | disposition home or self-care (01) | LOC: RT 11:07 | PROVIDERS: PCP Family Medicine; Visit Provider Family Medicine | DX: R06.09 Other forms of dyspnea (principal) | CPT/HCPCS: 94010 ==

== ENCOUNTER 2024-08-04 20:44 | Emergency (ER) | payer MEDICARE, MEDICAID, SELFPAY ==
[2024-08-04 21:12] VITALS: BP 137/88; PULSE 94; RESP 18; TEMP 36.8; O2SAT 98; BMI 25.1
--- NOTE | 2024-08-04 21:24 | XRR_ITS ---
PROCEDURE INFORMATION: Exam: XR Chest Exam date and time: 08/04/2024 9:33 PM Age: 48 years old Clinical indication: Cough and fever; Additional info: Cough, fever TECHNIQUE: Imaging protocol: Radiologic exam of the chest. Views: 1 view. COMPARISON: CR XR chest 2V* [id number] 02/06/2024 2:40 PM FINDINGS: Lungs: Unremarkable. No consolidation. Pleural spaces: Unremarkable. No pleural effusion. No pneumothorax. Heart/Mediastinum: Unremarkable. No cardiomegaly. Bones/joints: Unremarkable. XR/XR chest 1V portable [id number] IMPRESSION: No acute findings.
[2024-08-04] MEDS: acetaminophen 500 mg Tablet 1000 MG PO (21:36)
[2024-08-04 21:37] VITALS: BP 138/90; PULSE 94; RESP 18; O2SAT 97
--- NOTE | 2024-08-04 21:47 | ED_ITS ---
HPI - URI/Sore Throat General: Chief Complaint: Upper Respiratory Infection Stated Complaint: fever/body aches Time Seen by Provider: 08/04/24 20:50 Source: patient Mode of arrival: ambulatory Limitations: no limitations History of Present Illness: Patient is a 48-year-old male presenting to the emergency department complaining of fever onset today. He is also reporting associated symptoms of body ache, sore throat, and headache. Notes multiple possible sick contact exposure, also has a history of allergies and thinks that these are causing some of his symptoms. States his temperature was 100.5 at home, here at this time it is 98.3 orally. No pertinent past medical history to report. Has not taken any medications. Also notes that he does not drink much water and may be dehydrated. MD elicited complaint: fever Onset (ago): hour(s) Consistency: constant Able to tolerate fluids by mouth: Yes Exacerbating factors: nothing Relieving factors: nothing Context: sick contacts Associated symptoms: Reports fever(s) and headache(s); Deny abdominal pain, chills, chest pain, diarrhea, ear or mastoid pain, nausea or vomiting Treatments prior to arrival: none Related Data Home Medications Medication Instructions Recorded Confirmed acetaminophen 500 mg tablet 1,000 mg PO PRN PRN Pain 06/29/20 05/15/24 (Tylenol Extra Strength) fluticasone propionate 50 1 spray intranasal DAILY PRN 06/29/20 05/15/24 mcg/actuation nasal allergies spray,suspension (Flonase Allergy Relief) diphenhydramine HCl 25 mg capsule 25 mg PO TID PRN Allergic Symptoms 08/03/22 05/15/24 (Benadryl) bupropion HCl 300 mg 24 hr tablet, 300 mg PO QAM 12/17/23 05/15/24 extended release (Wellbutrin XL) Previous Rx's Medication Instructions Recorded hydroxyzine HCl 25 mg tablet 25 mg PO DAILY PRN anxiety #30 tabs 03/04/24 clonazepam 0.5 mg tablet 0.5 mg PO DAILY PRN anxiety #30 06/26/24 tabs escitalopram oxalate 10 mg tablet 10 mg PO DAILY #30 tabs 06/26/24 (Lexapro) Allergies Allergy/AdvReac Type Severity Reaction Status Date / Time aspirin Allergy ALGY-Difficulty Verified 05/15/24 11:43 Breathing Review of Systems General: Reports: 10 or more systems reviewed and unremarkable except in HPI and below Const: Reports: fever(s), body aches and fatigue; Denies: chills Eyes: Denies: change in vision ENMT: Reports: throat pain; Denies: ear or mastoid pain or nasal discharge Card: Denies: chest pain, palpitations, swelling of feet/ankles or lightheadedness Resp: Denies: dyspnea, productive cough or wheezing GI: Denies: abdominal pain, nausea, vomiting, diarrhea or constipation : Denies: flank pain, difficulty urinating, dysuria or urinary frequency Musc: Denies: neck pain, back pain or joint pain Skin/Breast: Denies: rash Neuro: Reports: headache(s); Denies: numbness in extremities or weakness in extremities PFSH ED PFSH: Medical History Psychiatric care Borderline intellectual functioning Generalized anxiety disorder Major depressive disorder, recurrent severe without psychotic features Social History Smoking and tobacco/nicotine status: never used tobacco/nicotine Physical Exam Const: COMMON NORMALS: no acute distress and no limitations GENERAL APPEARANCE: cooperative, comfortable and well developed ORIENTATION/CONSCIOUSNESS: Yes awake HENMT: COMMON NORMALS: normocephalic, atraumatic, hearing grossly normal bilaterally, Normal external nose present, Normal nasal mucous membranes and turbinates present, moist oral mucous membranes and oropharynx normal HEAD & SCALP: normocephalic and atraumatic FACE & SINUS: normal facial exam NOSE: Normal external nose present and Normal nasal mucous membranes and turbinates present Eye: COMMON NORMALS: Equal, round and reactive pupils present, EOMs intact bilaterally and conjunctivae normal CONJUNCTIVA: Yes conjunctivae normal PUPIL: Yes Equal, round and reactive pupils present Neck/C-Spine: COMMON NORMALS: full ROM, supple and no JVD Resp: COMMON NORMALS: normal respiratory effort, No retractions, No use of accessory muscles and clear to auscultation bilaterally AUSCULTATION: clear to auscultation bilaterally Cardio: COMMON NORMALS: no JVD, regular rate, regular rhythm, No clicks present (Cardio), No murmurs present (Cardio) and No rub (Cardio) RATE: regular rate RHYTHM: regular rhythm GI: COMMON NORMALS: Normal to inspection, nondistended, normoactive bowel sounds present, Soft to palpation and non-tender AUSCULTATION: Yes normoactive bowel sounds PALPATION: Yes Soft to palpation RECTAL EXAM: Yes deferred Extremity: COMMON NORMALS: normal to inspection, full ROM and capillary refill normal Psych: COMMON NORMALS: mental status grossly normal and Normal thought process present THOUGHT PROCESS: Normal thought process present Skin: COMMON NORMALS: no rashes or lesions noted GENERAL SKIN EXAM: no rashes or lesions noted Course Vital Signs: Vital signs: Vital Signs Temperature 98.3 F 08/04/24 21:12 Pulse Rate 94 08/04/24 21:37 Respiratory Rate 18 08/04/24 21:37 Blood Pressure 138/90 08/04/24 21:37 Pulse Oximetry 97 08/04/24 21:37 Oxygen Delivery Me thod Room Air 08/04/24 21:37 MDM - URI/Sore Throat Medical Decision Making Patient presented with nonspecific symptoms, had a fever today of 100.5 though was afebrile here in the emergency department without taking any medications. No pertinent past medical history, his swabs for COVID flu and RSV were negative and a chest x-ray did not demonstrate any acute findings. With his normal labs, and clinical appearance and normal physical exam, I believe this is likely a viral illness and no need for further blood work or evaluation at this time. He has remained clinically stable throughout ED stay, and is okay with discharge home at this time and following up with primary care. Discussed return precautions, he understands. Lab Data Laboratory Results Coronavirus (PCR) Negative (Negative) 08/04/24 21:19 Influenza A (PCR) Negative (Negative) 08/04/24 21:19 Influenza Type B (PCR) Negative (Negative) 08/04/24 21:19 RSV (PCR) Negative (Negative) 08/04/24 21:19 XR interpretation done by ED provider, pending radiology final review ED provider radiology interpretation(s): No acute cardiopulmonary process on chest x-ray. Discharge Plan Discharge Patient Disposition: Home Clinical Impression: Upper respiratory infection Qualifiers: URI type: unspecified viral URI Qualified Code(s): J06.9 - Acute upper respiratory infection, unspecified Condition: Stable Prescriptions: No Action bupropion HCl [Wellbutrin XL] 300 mg tablet extended release 24 hr 300 mg PO QAM hydroxyzine HCl 25 mg tablet 25 mg PO DAILY PRN (Reason: anxiety) Qty: 30 2RF escitalopram oxalate [Lexapro] 10 mg tablet 10 mg PO DAILY Qty: 30 1RF clonazepam 0.5 mg tablet 0.5 mg PO DAILY PRN (Reason: anxiety) Qty: 30 1RF acetaminophen [Tylenol Extra Strength] 500 mg Tablet 1,000 mg PO PRN PRN (Reason: Pain) fluticasone propionate [Flonase Allergy Relief] 50 mcg/actuation [place],Suspension 1 spray INTRANASAL DAILY PRN (Reason: allergies) Rx Instructions: pt states he hasnt started using this medication yet Benadryl 25 mg Capsule 25 mg PO TID PRN (Reason: Allergic Symptoms) Discharge Orders: Discharge ED (Routine); Ordered 08/04/24 Ordered By: Carson Galvez Referrals: Aldo Rodríguez MD [Primary Care Provider] - Patient Instructions: Viral Syndrome (ED) Activity Restrictions/Additional Instructions: Plenty of fluids. Alternate Tylenol and Ibuprofen. Contact precaution, rest and recovery. Close follow up with primary care provider. Return with any new or worsening symptoms. 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
[2024-08-04 22:10] LABS: Covid PCR NEGATIVE (Negative); Influenza A NEGATIVE (Negative); Influenza B NEGATIVE (Negative); Respiratory Syncytial Virus Ce NEGATIVE (Negative)
[2024-08-04 22:36] VITALS: BP 117/81; PULSE 73; O2SAT 97
== END 2024-08-04 22:37 | disposition home or self-care (01) ==
PROVIDERS: Emergency Medicine; Emergency Provider Physician Assistant; PCP Family Medicine
DX: J06.9 Acute upper respiratory infection, unspecified (principal)
CPT/HCPCS: 0241U; 71045; 99284

== ENCOUNTER 2024-11-24 07:40 | Outpatient (CLI) | payer MEDICARE, MEDICAID, SELFPAY ==
--- NOTE | 2024-11-24 07:46 | MR_ITS ---
WS: [id number] MRI HEAD WITHOUT CONTRAST TECHNIQUE: Sagittal T1, T2 axial, T2 axial FLAIR, axial and coronal T1 images, axial susceptibility weighted imaging, axial diffusion weighted images, and coronal T2 images were obtained. CLINICAL INFORMATION: SHORT TERM MEMORY LOSS COMPARISON: CT head 12/26/2019 FINDINGS: No evidence of restricted diffusion to suggest acute ischemia. Ventricular system and basal cisterns are patent. 1 or 2 tiny foci of T2 hyperintensity in the frontoparietal white matter near the vertex of doubtful clinical significance. No suspicious intracranial signal abnormalities. Normal posterior fossa. Normal vascular flow voids at the skull base. No extra-axial fluid collections. No evidence of mass or mass effect. Paranasal sinuses and mastoid air cells are well aerated. No hemosiderin on susceptibility-weighted images. Normal optic chiasm and pituitary infundibulum. Temporal lobes and hippocampal formations are normal in appearance. MR/MR head wo con* [id number] IMPRESSION: 1. No evidence of restricted diffusion to suggest acute ischemia. 2. No suspicious intracranial signal abnormalities. 3. No hemosiderin on susceptibility-weighted images. 4. Temporal lobes and hippocampal formations are normal in appearance. 5. No acute intracranial findings.
== END 2024-11-24 07:41 | disposition home or self-care (01) ==
LOC: RAD 07:42
PROVIDERS: PCP Family Medicine; Visit Provider Family Medicine
DX: R41.3 Other amnesia (principal)
CPT/HCPCS: 70551

== ENCOUNTER 2025-07-10 05:03 | Emergency (ER) | payer OTHER, MEDICAID, SELFPAY ==
[2025-07-10 05:11] VITALS: BP 128/83; PULSE 90; RESP 18; TEMP 36.8; O2SAT 99; BMI 27.9
--- NOTE | 2025-07-10 05:12 | W.ED.SKABFB ---
HPI - Skin/Abscess/Foreign Bdy General: Chief complaint: Allergic Reaction Stated complaint: woke with whole body rash Time Seen by Provider: 07/10/25 05:05 Source: patient Mode of arrival: ambulatory Limitations: no limitations History of Present Illness: 49-year-old male states that when he woke up this morning noticed a rash to his trunk buttocks and arms. He states it is very pruritic in nature and seems to move around and spread. He denies any shortness of breath denies any throat swelling. Denies any allergic reaction in the past. He denies any fevers. Related Data Home Medications ?Medication ?Instructions ?Recorded ?Confirmed acetaminophen 500 mg tablet 1,000 mg PO PRN PRN Pain 06/29/20 05/15/24 (Tylenol Extra Strength) fluticasone propionate 50 1 spray intranasal DAILY PRN 06/29/20 05/15/24 mcg/actuation nasal allergies spray,suspension (Flonase Allergy Relief) diphenhydramine HCl 25 mg capsule 25 mg PO TID PRN Allergic Symptoms 08/03/22 05/15/24 (Benadryl) bupropion HCl 300 mg 24 hr tablet, 300 mg PO QAM 12/17/23 05/15/24 extended release (Wellbutrin XL) Previous Rx's ?Medication ?Instructions ?Recorded hydroxyzine HCl 25 mg tablet 25 mg PO DAILY PRN anxiety #30 tabs 03/04/24 clonazepam 0.5 mg tablet 0.5 mg PO DAILY PRN anxiety #30 08/25/24 tabs escitalopram oxalate 10 mg tablet 10 mg PO DAILY #30 tabs 10/21/24 (Lexapro) prednisone 50 mg tablet 50 mg PO DAILY #5 tabs 07/10/25 Allergies Allergy/AdvReac Type Severity Reaction Status Date / Time aspirin Allergy ALGY-Difficulty Verified 07/10/25 05:15 Breathing Review of Systems Skin/Breast: Reports: rash PFSH ED PFSH: Medical History Borderline intellectual functioning Generalized anxiety disorder Major depressive disorder, recurrent severe without psychotic features Social History Smoking and tobacco/nicotine status: never used tobacco/nicotine Physical Exam Const: COMMON NORMALS: no acute distress, patient oriented x3 and healthy appearing HENMT: COMMON NORMALS: normocephalic and atraumatic HEAD & SCALP: normocephalic and atraumatic THROAT: posterior oropharynx normal Eye: COMMON NORMALS: conjunctivae normal CONJUNCTIVA: Yes conjunctivae normal Neck/C-Spine: COMMON NORMALS: full ROM and supple Chest: COMMONS NORMALS: normal palpation of entire chest wall Resp: COMMON NORMALS: normal respiratory effort, No retractions, No use of accessory muscles and clear to auscultation bilaterally AUSCULTATION: clear to auscultation bilaterally Cardio: COMMON NORMALS: regular rate, regular rhythm and No murmurs present (Cardio) RATE: regular rate RHYTHM: regular rhythm Extremity: COMMON NORMALS: full ROM Neuro: COMMON NORMALS: patient oriented x3, moves all extremities and no focal motor deficits Psych: COMMON NORMALS: mental status grossly normal, Normal thought process present and cooperative THOUGHT PROCESS: Normal thought process present Skin: COMMON NORMALS: no wounds NARRATIVE SKIN EXAM: Urticarial rash noted to trunk and extremities Course Vital Signs: Vital signs: Vital Signs Temperature 98.3 F 07/10/25 05:11 Pulse Rate 90 07/10/25 05:11 Respiratory Rate 18 07/10/25 05:11 Blood Pressure 128/83 07/10/25 05:11 Pulse Oximetry 99 07/10/25 05:11 MDM - Skin/Abscess/Foreign Bdy Medicial Decision Making Patient presents for the rash. This rash here is consistent with urticaria has improved here after Solu-Medrol along with Benadryl and Pepcid. He has no signs of cellulitis has no signs of [place] syndrome. He is to continue to take Pepcid Benadryl at home as needed will start him on prednisone as well. He has no signs of anaphylaxis no shortness of breath wheezing or throat closing. He is to follow-up with PCP and return if worsening he understands agrees to plan. Medical Records I reviewed the patient's medical records. No radiology studies performed this visit Discharge Plan Discharge Patient Disposition: Home Clinical Impression: Urticaria Condition: Stable Prescriptions: New prednisone 50 mg tablet 50 mg PO DAILY Qty: 5 0RF No Action bupropion HCl [Wellbutrin XL] 300 mg tablet extended release 24 hr 300 mg PO QAM hydroxyzine HCl 25 mg tablet 25 mg PO DAILY PRN (Reason: anxiety) Qty: 30 2RF clonazepam 0.5 mg tablet 0.5 mg PO DAILY PRN (Reason: anxiety) Qty: 30 1RF escitalopram oxalate [Lexapro] 10 mg tablet 10 mg PO DAILY Qty: 30 1RF acetaminophen [Tylenol Extra Strength] 500 mg Tablet 1,000 mg PO PRN PRN (Reason: Pain) fluticasone propionate [Flonase Allergy Relief] 50 mcg/actuation [place],Suspension 1 spray INTRANASAL DAILY PRN (Reason: allergies) Rx Instructions: pt states he hasnt started using this medication yet Benadryl 25 mg Capsule 25 mg PO TID PRN (Reason: Allergic Symptoms) Discharge Orders: Discharge ED (Routine); Ordered 07/10/25 Ordered By: Sergio Villalba Referrals: Aldo Rodríguez MD [Primary Care Provider, Family Practice] - 4-7 days Discharge Diet: Advance as tolerated Discharge Activity: Resume usual activity Patient Instructions: Urticaria (ED) Print Language: Georgian Coding Level of Care Code 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
--- OUTSIDE RECORDS SUMMARY | 2025-07-10 05:14 | XMS_ITS | Clinical Summary ---
Author Organization [facility] Address [address] [place] [address] Phone Care Team Providers Care Contracts Analyst Name Role Phone Aldo Rodríguez MD Primary Care Provider + Allergies Active Allergy Reactions Criticality Noted Date Comments Aspirin Hives High 10/16/2024 Medications buPROPion HCL (WELLBUTRIN XL) 150 mg Extended Release 24 hour tablet Take 150 mg by mouth daily at bedtime. Active clonazePAM (KlonoPIN) 2 mg tablet Take 2 mg by mouth daily at bedtime. Active busPIRone (BUSPAR) 7.5 mg Tablet Take 7.5 mg by mouth daily at bedtime. Active hydrOXYzine HCL (ATARAX) 50 mg tablet Take 50 mg by mouth daily at bedtime. Active escitalopram oxalate (LEXAPRO) 20 mg tablet Take 20 mg by mouth daily at bedtime. Active Social History Tobacco Use Types Packs/Day Years Used Date Smoking Tobacco: Former Cigarettes Smokeless Tobacco: Never Tobacco Cessation:Counseling Given: Not Answered Alcohol Use Standard Drinks/Week Comments Never 0 (1 standard drink = 0.6 oz pur e alcohol) Feeling Safe Answer Date Recorded Are you in a relationship wi th someone who hurts you emotionally and/or physically? 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 Gender Identity Not on file Sexual Orientation Not on file Last Filed Vital Signs Vital Sign Reading Time Taken Comments Blood Pressure 130/93 10/16/2024 10:00 PM SECURITY SERGEANT Pulse 108 10/16/2024 10:00 PM SECURITY SERGEANT Temperature 37.8 C (100.1 F) 10/16/2024 9:23 PM SECURITY SERGEANT Respiratory Rate 20 10/16/2024 10:00 PM SECURITY SERGEANT Oxygen Saturation 93% 10/16/2024 10:00 PM SECURITY SERGEANT Inhaled Oxygen Concentration - - Weight 82.8 kg (182 lb 9.6 oz) 10/16/2024 9:23 P M SECURITY SERGEANT Height 177.8 cm (5' 10 ) 10/16/2024 9:23 PM SECURITY SERGEANT Body Mass Index 26.2 10/16/2024 9:23 PM SECURITY SERGEANT Plan of Treatment Health Maintenance Due Date Last Done Comments Pre-Diabetes and Diabetes Screening 1975 DTAP/TDAP/TD VACCINES (1 - Tdap) 12/23/1994 HEPATITIS B VACCINES (1 of 3 - 19+ 3-dose series) 09/1994 COLORECTAL SCREENING 12/23/2020 Colorectal Cancer Screening 12/23/2020 FIT-DNA Q 3 years 12/23/2020 FIT/FOBT Q 1 year 12/23/2020 Flex Sig/CT Colonography Q 5 years 12/23/2020 INFLUENZA VACCINE (#1) 2025 Insurance [id number] [place] [address] UHC DUAL COMPLETE HMO [facility] [id number] MEDICAID [place] Care Teams Contracts Analyst Relationship Specialty Start Date [place] Date Aldo [place]rí[place] [address] [place] [address] [phone] PCP - General Family Practice 10/16/24
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
[2025-07-10] MEDS: methylPREDNISolone sod succ 125 mg/2 mL INJ IVP (05:48)
[2025-07-10] MEDS: diphenhydrAMINE 50 mg/mL SDV 1mL IVP (05:48)
[2025-07-10 05:49] VITALS: BP 102/67; PULSE 83; O2SAT 96
[2025-07-10 05:52] VITALS: BP 103/74; PULSE 76; O2SAT 98
== END 2025-07-10 06:02 | disposition home or self-care (01) ==
PROVIDERS: Emergency Provider Emergency Medicine; PCP Family Medicine
DX: L50.9 Urticaria, unspecified (principal)
CPT/HCPCS: 96374; 96375; 99284; J1200; J2919; J3490

== ENCOUNTER 2025-07-11 11:17 | Emergency (ER) | payer OTHER, MEDICAID, SELFPAY ==
--- OUTSIDE RECORDS SUMMARY | 2025-07-11 11:23 | XMS_ITS | Clinical Summary ---
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 Gender Identity Not on file Sexual Orientation Not on file Last Filed Vital Signs Vital Sign Reading Time Taken Comments Blood Pressure 130/93 10/16/2024 10:00 PM CITIZENSHIP TEACHER Pulse 108 10/16/2024 10:00 PM CITIZENSHIP TEACHER Temperature 37.8 C (100.1 F) 10/16/2024 9:23 PM CITIZENSHIP TEACHER Respiratory Rate 20 10/16/2024 10:00 PM CITIZENSHIP TEACHER Oxygen Saturation 93% 10/16/2024 10:00 PM CITIZENSHIP TEACHER Inhaled Oxygen Concentration - - Weight 82.8 kg (182 lb 9.6 oz) 10/16/2024 9:23 P M CITIZENSHIP TEACHER Height 177.8 cm (5' 10 ) 10/16/2024 9:23 PM CITIZENSHIP TEACHER Body Mass Index 26.2 10/16/2024 9:23 PM CITIZENSHIP TEACHER Plan of Treatment Health Maintenance Due Date [...] VACCINE (#1) 2025 Insurance [id number] [place] [address] UHC DUAL COMPLETE HMO [facility] [id number] MEDICAID [place] Care Teams Adapted Physical Education Specialist Relationship Specialty Start Date End Date Aldo Rodrí[place]uez [place] [address] [place] [address] [phone] PCP - General Family Practice 10/16/24
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
[2025-07-11 11:24] VITALS: BP 107/67; PULSE 83; RESP 17; TEMP 36.7; O2SAT 98; BMI 27.9
--- NOTE | 2025-07-11 11:56 | XRR_ITS ---
PROCEDURE INFORMATION: Exam: XR Left Hand Exam date and time: 07/11/2025 12:29 PM Age: 49 years old Clinical indication: Injury or trauma; Other: Cut index finger w saw; Prior surgery; Surgery date: 6+ months; Surgery type: RT wrist TECHNIQUE: Imaging protocol: Radiologic exam of the left hand. Views: 3 or more views. COMPARISON: No relevant prior studies available. FINDINGS: Bones/joints: Prior surgical changes involving the radius. Chronic ulnar styloid fracture. There is no fracture or joint dislocation. Soft tissues: Soft tissue swelling involving the 2nd digit. XR/XR hand LT min 3V* [id number] IMPRESSION: 1. No fracture. 2. Soft tissue swelling involving the 2nd digit.
--- NOTE | 2025-07-11 12:32 | W.ED.WOUNDLC ---
HPI - Wound/Laceration General: Chief Complaint: Wound/Laceration Stated Complaint: L hand Index finger Cut Time Seen by Provider: 07/11/25 12:26 Source: patient Mode of arrival: ambulatory Limitations: no limitations History of Present Illness: Patient is a 49-year-old male presented to the emergency department for laceration to left index finger. He was using a hole saw, caused a laceration to the palmar aspect. There is mild active bleeding at this time, he has full range of motion of the finger and no distal sensory changes. Good flexion, does not appear laceration lacerated the tendon. His tetanus is up-to-date. Reporting moderate pain at this time. Dressing applied prehospital which has controlled the bleeding. No blood thinner use. Vitals are stable at this time. Onset (ago): minute(s) Extremity Location: Left: hand (index finger) Place: home Patient tetanus UTD: Yes Context: accidental Associated symptoms: Denies chills, fever(s), nausea or vomiting Treatments prior to arrival: bandage Related Data Home Medications ?Medication ?Instructions ?Recorded ?Confirmed acetaminophen 500 mg tablet 1,000 mg PO PRN PRN Pain 06/29/20 05/15/24 (Tylenol Extra Strength) fluticasone propionate 50 1 spray intranasal DAILY PRN 06/29/20 05/15/24 mcg/actuation nasal allergies spray,suspension (Flonase Allergy Relief) diphenhydramine HCl 25 mg capsule 25 mg PO TID PRN Allergic Symptoms 08/03/22 05/15/24 (Benadryl) bupropion HCl 300 mg 24 hr tablet, 300 mg PO QAM 12/17/23 05/15/24 extended release (Wellbutrin XL) Previous Rx's ?Medication ?Instructions ?Recorded hydroxyzine HCl 25 mg tablet 25 mg PO DAILY PRN anxiety #30 tabs 03/04/24 clonazepam 0.5 mg tablet 0.5 mg PO DAILY PRN anxiety #30 08/25/24 tabs escitalopram oxalate 10 mg tablet 10 mg PO DAILY #30 tabs 10/21/24 (Lexapro) prednisone 50 mg tablet 50 mg PO DAILY #5 tabs 07/10/25 cephalexin 500 mg capsule 500 mg PO Q6H 5 days #20 caps 07/11/25 Allergies Allergy/AdvReac Type Severity Reaction Status Date / Time aspirin Allergy ALGY-Difficulty Verified 07/10/25 05:15 Breathing Review of Systems General: Reports: 10 or more systems reviewed and unremarkable except in HPI and below Const: Denies: fever(s) or chills Card: Denies: chest pain Resp: Denies: dyspnea GI: Denies: abdominal pain, nausea, vomiting or diarrhea Musc: Denies: extremity pain or joint pain Skin/Breast: Reports: skin pain, skin tenderness and new lesions (left index finger lac); Denies: rash Neuro: Denies: headache(s) PFSH ED PFSH: Medical History Borderline intellectual functioning Generalized anxiety disorder Major depressive disorder, recurrent severe without psychotic features Social History Smoking and tobacco/nicotine status: never used tobacco/nicotine Physical Exam Const: COMMON NORMALS: no acute distress, average body habitus, patient oriented x3, no limitations, healthy appearing, alert and well nourished HENMT: COMMON NORMALS: normocephalic and atraumatic HEAD & SCALP: normocephalic and atraumatic Neck/C-Spine: COMMON NORMALS: full ROM, no lymphadenopathy, supple and no meningeal signs Extremity: COMMON NORMALS: full ROM and capillary refill normal Neuro: COMMON NORMALS: patient oriented x3, moves all extremities, no focal motor deficits and no sensory deficits noted SENSORIUM/ORIENTATION: Yes alert MENINGEAL SIGNS: Yes no meningeal signs Skin: COMMON NORMALS: turgor normal NARRATIVE SKIN EXAM: V-shaped, 4 cm laceration to palmar aspect of left index finger with mild active bleeding at this time. No foreign body or contamination. Does not appear to have lacerated the tendon. GENERAL SKIN EXAM: turgor normal Procedures Laceration Laceration 1: Site: hand (index finger) Side (If applicable): left Size (cm): 4 Description: flap and clean Depth: simple, single layer Local Anesthetic: lidocaine 1% Amount of anesthesia used (mL): 1 Pre-repair: wound explored, irrigated extensively and deep structures intact Skin layer closed with: nylon Size (cm): 5-0 Number of sutures: 8 Technique: simple, interrupted ((7)) and other (figure of eight for vessel ligation (1)) Nerve Block Nerve Block 1: Local Anesthetic: lidocaine 2% Amount of anesthesia used (mL): 5 Side: left Nerve Blocks: digital Procedure Successful: Yes Patient Tolerated Procedure: well Complications: none Course Vital Signs: Vital signs: Vital Signs Temperature 98.1 F 07/11/25 11:24 Pulse Rate 83 07/11/25 11:24 Respiratory Rate 17 07/11/25 11:24 Blood Pressure 107/67 07/11/25 11:24 Pulse Oximetry 98 07/11/25 11:24 Oxygen Delivery Me thod Room Air 07/11/25 11:24 MDM - Wound/Laceration Medical Decision Making Patient presented after lacerating palmar aspect of left index finger with a saw. Tetanus had been up-to-date. Mild bleeding on arrival, this vessel was identified and ligated successfully with [id number] suture, and the rest of the laceration repaired, see the procedure note. Prior to this 500 cc of fluid had been used to irrigate the wound as it was cleaned thoroughly, he had full range of motion on exam and neurovascular status was intact, no significant concern that he caused any major laceration of the tendon. There was no nailbed involvement. X-ray showed no bony abnormality. He will be started on prophylactic cephalexin and educated on how to keep the wound clean, as well as signs and symptoms to watch for that would warrant return to the ED. Postprocedure neurovascular status is intact. XR interpretation done by ED provider, pending radiology final review ED provider radiology interpretation(s): X-ray of left hand does not show any bony abnormality. Discharge Plan Discharge Patient Disposition: Home Clinical Impression: Laceration of left index finger Qualifiers: Encounter type: initial encounter Damage to nail status: without damage Foreign body presence: without foreign body Qualified Code(s): S61.211A - Laceration without foreign body of left index finger without damage to nail, initial encounter Condition: Stable Prescriptions: New cephalexin 500 mg capsule 500 mg PO Q6H 5 Days Qty: 20 0RF No Action bupropion HCl [Wellbutrin XL] 300 mg tablet extended release 24 hr 300 mg PO QAM hydroxyzine HCl 25 mg tablet 25 mg PO DAILY PRN (Reason: anxiety) Qty: 30 2RF clonazepam 0.5 mg tablet 0.5 mg PO DAILY PRN (Reason: anxiety) Qty: 30 1RF escitalopram oxalate [Lexapro] 10 mg tablet 10 mg PO DAILY Qty: 30 1RF acetaminophen [Tylenol Extra Strength] 500 mg Tablet 1,000 mg PO PRN PRN (Reason: Pain) fluticasone propionate [Flonase Allergy Relief] 50 mcg/actuation [place],Suspension 1 spray INTRANASAL DAILY PRN (Reason: allergies) Rx Instructions: pt states he hasnt started using this medication yet Benadryl 25 mg Capsule 25 mg PO TID PRN (Reason: Allergic Symptoms) prednisone 50 mg tablet 50 mg PO DAILY Qty: 5 0RF Discharge Orders: Discharge ED (Routine); Ordered 07/11/25 Ordered By: Carson Galvez Referrals: Aldo Rodríguez MD [Primary Care Provider, Family Practice] Patient Instructions: Patient Portal & Mark Instructions Activity Restrictions/Additional Instructions: Finger Laceration Discharge Wound Care Instructions: - Keep the wound covered with a clean, non-adherent or occlusive dressing (such as Telfa pad or a bandage) for the first 48 hours. This helps protect the wound and promotes healing in a moist environment. - You may gently wash the area with soap and water after 24 hours. Brief exposure to water does not increase infection risk, but avoid soaking the finger (no swimming or dishwashing) until sutures are removed. - Apply a thin layer of plain petroleum jelly (like Vaseline) or topical antibiotic ointment (such as Polysporin) before re-covering the wound. This keeps the wound moist and may help prevent infection. - Change the dressing daily, or sooner if it becomes wet or dirty. Always wash your hands before and after changing the dressing. - Avoid strenuous use of the finger until the sutures are removed. Protect the area from trauma. Suture Removal: - Sutures on the finger are typically removed in 10-14 days, depending on healing. You will be advised when to return for removal. Return Precautions: Contact your healthcare provider or return to the emergency department if you notice any of the following: - Increasing redness, swelling, warmth, or pain around the wound - Pus or foul-smelling drainage - Fever or chills - Red streaks spreading from the wound - Loss of movement, numbness, or worsening function in the finger - Sutures come out early or the wound reopens Other Instructions: - Your tetanus vaccination is up-to-date; no further action is needed unless otherwise advised. - Routine antibiotics are not needed for simple, clean lacerations unless signs of infection develop. If you have any questions or concerns about your wound, please contact your healthcare provider. Print Language: Afghan Coding Level of Care Code ED Hosp[facility] Home Health Aide for 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
[2025-07-11] MEDS: HYDROcodone-acetaminophen 7.5-325 mg Tablet 1 TAB PO (12:41)
[2025-07-11 13:29] VITALS: BP 128/80; PULSE 88; RESP 15; O2SAT 97
== END 2025-07-11 13:40 | disposition home or self-care (01) ==
PROVIDERS: Emergency Provider Physician Assistant; PCP Family Medicine
DX: S61.211A Laceration without foreign body of left index finger without damage to nail, initial encounter (principal); W27.0XXA Contact with workbench tool, initial encounter
CPT/HCPCS: 12002; 73130; 99283; J9999

== ENCOUNTER 2025-08-13 19:09 | Emergency (ER) | payer MEDICARE, MEDICAID, SELFPAY ==
[2025-08-13 19:15] VITALS: BP 146/87; PULSE 87; RESP 18; TEMP 36.3; O2SAT 98; BMI 27.9
--- OUTSIDE RECORDS SUMMARY | 2025-08-13 19:18 | XMS_ITS | Clinical Summary ---
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 Gender Identity Not on file Sexual Orientation Not on file Last Filed Vital Signs Vital Sign Reading Time Taken Comments Blood Pressure 130/93 10/16/2024 10:00 PM TELEVISION CABLE INSTALLER Pulse 108 10/16/2024 10:00 PM TELEVISION CABLE INSTALLER Temperature 37.8 C (100.1 F) 10/16/2024 9:23 PM TELEVISION CABLE INSTALLER Respiratory Rate 20 10/16/2024 10:00 PM TELEVISION CABLE INSTALLER Oxygen Saturation 93% 10/16/2024 10:00 PM TELEVISION CABLE INSTALLER Inhaled Oxygen Concentration - - Weight 82.8 kg (182 lb 9.6 oz) 10/16/2024 9:23 P M TELEVISION CABLE INSTALLER Height 177.8 cm (5' 10 ) 10/16/2024 9:23 PM TELEVISION CABLE INSTALLER Body Mass Index 26.2 10/16/2024 9:23 PM TELEVISION CABLE INSTALLER Plan of Treatment Health Maintenance Due Date Last Done Comments Pre-Diabetes and Diabetes Screening 1975 DTAP/TDAP/TD VACCINES (1 - Tdap) 12/23/1994 HEPATITIS B VACCINES (1 of 3 - 19+ 3-dose series) 09/1994 COLORECTAL SCREENING 12/23/2020 Colorectal Cancer Screening 12/23/2020 FIT-DNA Q 3 years 12/23/2020 FIT/FOBT Q 1 year 12/23/2020 Flex Sig/CT Colonography Q 5 years 12/23/2020 INFLUENZA VACCINE (#1) 2025 Insurance [facility] DUAL COMPLETE HMO [facility] [id number] MEDICAID [place] Care Teams Vinyl Top Installer Relationship Specialty Start Date End Date Aldo Rodríguez MD [address] [place] [address] PCP - General Family Practice 10/16/24
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
[2025-08-13 19:20] VITALS: BP 146/87; PULSE 87; RESP 18; TEMP 36.3; O2SAT 98
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
[2025-08-13] MEDS: orphenadrine 30 mg/mL Inj 2 mL 60 MG IM (20:08)
[2025-08-13 21:38] VITALS: BP 115/75; PULSE 68; RESP 16; O2SAT 95
== END 2025-08-13 21:37 | disposition home or self-care (01) ==
PROVIDERS: Emergency Provider Physician Assistant; PCP Family Medicine
DX: S29.8XXA Other specified injuries of thorax, initial encounter (principal); W20.8XXA Other cause of strike by thrown, projected or falling object, initial encounter
CPT/HCPCS: 71045; 96372; 99284; J1885; J2360